=== PATIENT | female | born 1995 | race Caucasian/White ===

== ENCOUNTER 2023-10-23 13:34 | Day surgery (SDC) | payer OTHER, MEDICAID ==
[2023-10-23 14:08] VITALS: BMI 32.1
[2023-10-23] MEDS ORDERED: hydrALAZINE 20 MG/ML VIAL SLOW IVP PRN (14:12)
[2023-10-23 14:20] LABS: Bilirubin Neg (Negative); Blood, Urine 25 (Negative); Clarity Clear (Clear); Glucose, Urine (Dipstick) Normal (Negative); Ketone, Urine Negative (Negative); Leukocyte Negative (Negative); Nitrite Negative (Negative); Protein, Urine (Dipstick) 15 mg/dl (Neg-Trace); Specific Gravity, Urine 1.005 (1.005-1.030); Urobilinogen Normal mg/dL (Less than 2)
[2023-10-23 14:29] LABS: Bacteria/HPF Rare-Few HPF (None Seen); CAUTI Indications for Culture Pregnancy; RBC/HPF 0-3 HPF (0-3); WBC/HPF 0-3 HPF (0-3)
[2023-10-23 14:32] LABS: Urine Culture Reflex Yes Yes
== END 2023-10-23 16:38 | disposition home health service (06) ==
LOC: CSHLD/OP 13:34
PROVIDERS: ATTEND Family Medicine
DX: O99.891 Other specified diseases and conditions complicating pregnancy (principal); R10.9 Unspecified abdominal pain; O99.512 Diseases of the respiratory system complicating pregnancy, second trimester; J45.909 Unspecified asthma, uncomplicated; Z79.899 Other long term (current) drug therapy; Z3A.25 25 weeks gestation of pregnancy
CPT/HCPCS: 81001; 87086; 87480; 87510; 87660; 99284

== ENCOUNTER 2024-01-17 17:50 | Day surgery (SDC) | payer OTHER ==
[2024-01-17] MEDS ORDERED: hydrALAZINE 20 MG/ML VIAL SLOW IVP PRN (17:52)
[2024-01-17 18:39] VITALS: BMI 35.8
[2024-01-17 19:04] LABS: #Basophils 0.02 10x3/uL (0.0-0.2); #Eosinphils 0.14 10x3/uL (0.0-0.5); #Monocytes 0.66 10x3/uL (0.0-1.1); #Neutrophils 5.54 10x3/uL (1.5-8.4); %Basophils 0.2 % (0.0-2.0); %Eosinophils 1.7 % (0.0-6.0); %Lymphocytes 23.9 % (18.0-47.0); %Monocytes 7.9 % (0.0-10.0); %Neutrophils 65.9 % (40.0-75.0); Hematocrit 33.1 % (34.9-44.5); Hemoglobin 11.4 g/dL (12.0-15.5); Mean Corpuscular HGB CONC 34.4 g/dL (32.0-36.0); Mean Corpuscular Hemoglobin 33.6 pg (27.0-33.0); Mean Corpuscular Volume 97.6 fL (81.6-98.3); Mean Platelet Volume 10.7 fL (7.4-10.4); Platelet Count 160 10x3/uL (150-450); RBC Distribution Width 13.8 % (11.5-14.5); Red Blood Cell (RBC) Count 3.39 10x6/uL (3.90-5.03); White Blood Cell (WBC) Count 8.4 10x3/uL (3.5-10.5)
[2024-01-17 19:23] LABS: Creatinine, Urine 28.81 mg/dL (47-110); Protein, Urine Random Quant Less than 10 mg/dL (1-14)
[2024-01-17 19:23] LABS: ALT (SGPT) 10 U/L (8-55); AST (SGOT) 13 U/L (5-34); Albumin 2.6 g/dL (3.5-5.0); Alkaline Phosphatase 120 U/L (40-110); Anion Gap 14 mmol/L (10-20); BUN (Urea Nitrogen) 7 mg/dL (7.0-18.7); Bilirubin, Total 0.2 mg/dL (0.2-1.2); Calc. Creatinine Clearance 179 mL/min (70-130); Calcium 9.5 mg/dL (7.8-10.44); Carbon Dioxide 19 mmol/L (22-29); Chloride 108 mmol/L (98-107); Estimated GFR 124; Globulin 3.2 g/dL (2.4-3.5); Glucose 101 mg/dL (70-105); Potassium 3.9 mmol/L (3.5-5.1); Protein, Total 5.8 g/dL (6.0-8.3); Sodium 137 mmol/L (136-145)
== END 2024-01-17 19:42 | disposition home or self-care (01) ==
LOC: CSHLD/OP 17:50
PROVIDERS: ATTEND Family Medicine
DX: O99.891 Other specified diseases and conditions complicating pregnancy (principal); R03.0 Elevated blood-pressure reading, without diagnosis of hypertension; O99.513 Diseases of the respiratory system complicating pregnancy, third trimester; J45.909 Unspecified asthma, uncomplicated; Z3A.38 38 weeks gestation of pregnancy; Z79.899 Other long term (current) drug therapy
CPT/HCPCS: 36415; 80053; 82570; 84156; 85025; 99284

== ENCOUNTER 2024-01-25 10:19 | Inpatient (IN) | payer OTHER ==
[2024-01-25] MEDS ORDERED: Lidocaine 1% (PF) 30 ML VIAL SC PRN (11:16)
[2024-01-25] MEDS ORDERED: Promethazine HCl 25 MG/ML VIAL IM PRN ×2 (11:16→18:32)
[2024-01-25] MEDS ORDERED: fentaNYL 50 mcg/mL 1 mL Vial SLOW IVP PRN (11:16)
[2024-01-25] MEDS ORDERED: hydrALAZINE 20 MG/ML VIAL SLOW IVP PRN (11:16)
[2024-01-25] MEDS ORDERED: Diphenoxylate HCl/Atropine Tablet PO PRN (11:16)
[2024-01-25] MEDS ORDERED: Methylergonovine 0.2 MG/ML VIAL IM PRN (11:16)
[2024-01-25] MEDS ORDERED: Acetaminophen 500 MG TAB PO PRN (11:16)
[2024-01-25] MEDS ORDERED: Ondansetron PF 4 MG/2 ML Vial IVP PRN (11:16)
[2024-01-25 11:27] LABS: Hematocrit 32.9 % (34.9-44.5); Hemoglobin 11.7 g/dL (12.0-15.5); Mean Corpuscular HGB CONC 35.6 g/dL (32.0-36.0); Mean Corpuscular Hemoglobin 34.2 pg (27.0-33.0); Mean Corpuscular Volume 96.2 fL (81.6-98.3); Mean Platelet Volume 10.6 fL (7.4-10.4); Platelet Count 169 10x3/uL (150-450); RBC Distribution Width 13.7 % (11.5-14.5); Red Blood Cell (RBC) Count 3.42 10x6/uL (3.90-5.03); White Blood Cell (WBC) Count 8.1 10x3/uL (3.5-10.5)
[2024-01-25] MEDS ORDERED: Oxytocin 30 units/NS 500 ML 500 ML IV SCH (11:30)
[2024-01-25 11:50] LABS: ALT (SGPT) 11 U/L (8-55); AST (SGOT) 14 U/L (5-34); Albumin 2.8 g/dL (3.5-5.0); Alkaline Phosphatase 132 U/L (40-110); Anion Gap 14 mmol/L (10-20); BUN (Urea Nitrogen) 7 mg/dL (7.0-18.7); Bilirubin, Total 0.2 mg/dL (0.2-1.2); Calc. Creatinine Clearance 0 mL/min (70-130); Carbon Dioxide 17 mmol/L (22-29); Chloride 109 mmol/L (98-107); Estimated GFR 126; Glucose 82 mg/dL (70-105); Protein, Total 5.8 g/dL (6.0-8.3); Sodium 136 mmol/L (136-145)
[2024-01-25 11:59] LABS: HBsAg Index 0.15 S/CO (0-0.99); Hep B Surf Ag - L&D Non-Reactive S/CO (NonReactive)
[2024-01-25 12:00] LABS: Syphilis Antibody Nonreactive (Nonreactive); Syphilis Antibody Index 0.06 S/CO (<1.00 Non-Reactive)
[2024-01-25] MEDS: Oxytocin 30 units/NS 500 ML 500 ML IV SCH (12:10)
[2024-01-25] MEDS: Lactated Ringer's 1,000 ML IV SCH (12:11)
[2024-01-25 13:06] VITALS: BMI 36.0
[2024-01-25] MEDS: fentaNYL/Ropivacaine Epidural 100 ML ONE (18:19)
[2024-01-25] MEDS ORDERED: ePHEDrine Sulfate 50 MG/10 ML VIAL SLOW IVP PRN (18:32)
[2024-01-25] MEDS ORDERED: Naloxone HCl 0.4 mg/ml Vial IVP PRN ×2 (18:32)
[2024-01-25] MEDS ORDERED: Acetaminophen 325 MG TAB PO PRN (18:32)
[2024-01-25] MEDS ORDERED: diphenhydrAMINE 50 MG/ML VIAL IVP PRN (18:32)
[2024-01-25] MEDS ORDERED: Lactated Ringer's 500 ML IV PRN (18:32)
[2024-01-25] MEDS ORDERED: Moisturizing Cream (Eucerin) 113 GM JAR TOP PRN (18:32)
[2024-01-25] MEDS ORDERED: Communication Order-Pharmacy FS SCH (18:45)
[2024-01-25] MEDS ORDERED: fentaNYL 2 mcg/Ropivacaine 0.2% Epidural 100 ML CADD EPIDURAL SCH (18:45)
[2024-01-25] MEDS: Ondansetron PF 4 MG/2 ML Vial IVP PRN (19:32)
[2024-01-26] MEDS: Carboprost 250 MCG/ML AMP IM PRN (00:53)
[2024-01-26] MEDS: Misoprostol 200 MCG TAB PR PRN (01:12)
[2024-01-26] MEDS: Ibuprofen 800 MG TAB PO PRN (02:20)
[2024-01-26] MEDS: Oxytocin 30 units/NS 500 ML 500 ML IV SCH (02:29)
[2024-01-26] MEDS: Tranexamic Acid 1,000 MG/10 ML VIAL IVP PRN (02:30)
[2024-01-26] MEDS: CEFAZOLIN 2 GM in Sodium Chloride 0.9% 100 ML IVPB SCH (03:01)
[2024-01-26 03:46] LABS: Hematocrit 29.6 % (34.9-44.5); Hemoglobin 10.3 g/dL (12.0-15.5); Mean Corpuscular HGB CONC 34.8 g/dL (32.0-36.0); Mean Corpuscular Hemoglobin 33.6 pg (27.0-33.0); Mean Corpuscular Volume 96.4 fL (81.6-98.3); Mean Platelet Volume 10.5 fL (7.4-10.4); Platelet Count 143 10x3/uL (150-450); RBC Distribution Width 13.8 % (11.5-14.5); Red Blood Cell (RBC) Count 3.07 10x6/uL (3.90-5.03)
[2024-01-26] MEDS ORDERED: Bisacodyl 10 MG SUPP PR PRN (04:38)
[2024-01-26] MEDS ORDERED: Benzocaine-Menthol 82.5 ML CAN TOP PRN (04:38)
[2024-01-26] MEDS ORDERED: Promethazine HCl 25 MG/ML VIAL IM PRN (04:38)
[2024-01-26] MEDS ORDERED: diphenhydrAMINE 25 MG CAP PO PRN (04:38)
[2024-01-26] MEDS ORDERED: hydrALAZINE 20 MG/ML VIAL SLOW IVP PRN (04:38)
[2024-01-26] MEDS ORDERED: Oxytocin 30 units/NS 500 ML 500 ML IV SCH (04:38)
[2024-01-26] MEDS ORDERED: Methylergonovine 0.2 MG/ML VIAL IM PRN (04:38)
[2024-01-26] MEDS ORDERED: Ondansetron PF 4 MG/2 ML Vial IVP PRN (04:38)
[2024-01-26] MEDS ORDERED: Boostrix 0.5 ML (Tdap) VIAL (>/=7 yrs of age) IM ONE (04:38)
[2024-01-26] MEDS ORDERED: Preparation H Ointment 28 GM TUBE PR PRN (04:38)
[2024-01-26] MEDS ORDERED: Lanolin Ointment 7 GM TUBE TOP PRN (04:38)
[2024-01-26] MEDS ORDERED: Milk Of Magnesia 30 ML UDCUP PO PRN (04:38)
[2024-01-26] MEDS: Docusate 100 MG CAP PO SCH (08:50)
[2024-01-26] MEDS: Prenatal Vitamin 1 TAB PO SCH (08:51)
[2024-01-26] MEDS ORDERED: Bupivacaine HCl 0.5%/Epinephrine 1:200,000/PF 30 ml Vial ONE (09:00)
[2024-01-26] MEDS ORDERED: Bupivacaine 0.25% HCL 30 ML VIAL ONE (09:00)
[2024-01-26] MEDS: Ferrous Sulfate 325 MG TAB PO SCH (09:45)
[2024-01-26] MEDS: Ibuprofen 800 MG TAB PO SCH (12:23)
[2024-01-27] MEDS: Diphenoxylate HCl/Atropine Tablet PO SCH (07:29)
[2024-01-27 11:09] VITALS: BP 130/66; TEMP 98.6
== END 2024-01-27 15:00 | disposition home or self-care (01) | DRG 768 ==
LOC: CSHLD 10:19 → CSHPED 01-26 05:00
PROVIDERS: ADMIT Family Medicine; ATTEND Family Medicine
PROC: 10907ZC Drainage of Amniotic Fluid, Therapeutic from Products of Conception, Via Natural or Artificial Opening (ICD-10-PCS; 2024-01-25)
PROC: 10E0XZZ Delivery of Products of Conception, External Approach (ICD-10-PCS; principal; 2024-01-26)
PROC: 0DQR0ZZ Repair Anal Sphincter, Open Approach (ICD-10-PCS; 2024-01-26)
DX: O13.4 Gestational [pregnancy-induced] hypertension without significant proteinuria, complicating childbirth (principal); Z37.0 Single live birth; D62 Acute posthemorrhagic anemia; Z3A.39 39 weeks gestation of pregnancy; O70.20 Third degree perineal laceration during delivery, unspecified; O26.893 Other specified pregnancy related conditions, third trimester; Z67.11 Type A blood, Rh negative; O72.1 Other immediate postpartum hemorrhage; O99.02 Anemia complicating childbirth
CPT/HCPCS: 36415; 51701; 51702; 80053; 85027; 86780; 86850; 86900; 86901; 87340; J0665; J2405; J2590; J3490; J7120